=== PATIENT | female | born 1975 | race Caucasian/White ===

== ENCOUNTER 2016-09-27 19:43 | Emergency (ER) | payer MEDICARE, OTHER ==
[~2016-09-27 19:43] MED LIST: CITA20TA4 PO; CYCL-36 PO; OXYC1SOL5 PO; PROM2SUP RECTAL; PROT40TA PO; SUCR1TAB PO; TAB-TAB PO; ZOFR4TAB3 SL
[2016-09-27 20:50] VITALS: BP 130/72; PULSE 62; RESP 18; TEMP 97.6; O2SAT 99
[2016-09-27] MEDS ORDERED: LORazepam 2 MG/ML VIAL IV PUSH PRN (21:15)
--- NOTE | 2016-09-27 21:23 | PD ---
HPI Chief Complaint: Alcohol/Drug Intoxication Time Seen by Provider: 21:15 Travel History International Travel<30 days: No Contact w/Intl Traveler<30days: No Traveled to known affect area: No History of Present Illness HPI This is a 41-year-old female who presents to the emergency department brought in under Ortiz's act for being intoxicated in public at [employer] . She evidently vomited in the restaurant. She was very agitated upon arrival. She was there with a boyfriend and she is very upset because the boyfriend was discharged from the hospital but she wasn't. She doesn't provide much linear history. PFSH Past Medical History Autoimmune Disease: Yes Blood Disorders: No Anxiety: Yes Depression: Yes Cancer: No Cardiovascular Problems: No Chemotherapy: No Diabetes: No Diminished Hearing: No Endocrine: No Gastrointestinal Disorders: Yes (esophageal strictures) Gout: Yes Genitourinary: No Hepatitis: No Hiatal Hernia: No Hypertension: Yes Medical other: Yes (right lower leg ulcer) Musculoskeletal: Yes (hx of fusion) Neurologic: No Psychiatric: Yes (years ago pt stated she was dx with depression and anxiety) Reproductive: No Respiratory: No Integumentary: Yes (CELLULITIS TO RIGHT LOWER LEG 2007) Radiation Therapy: No Thyroid Disease: No ?: Not : 0 Past Surgical History Surgical History: No Previous Surgery Abdominal Surgery: Yes (gastric bypass) AICD: No Gynecologic Surgery: Yes (endometerial ablation) Joint Replacement: No Pacemaker: No Other Surgery: Yes Social History Alcohol Use: Yes (OCC) Tobacco Use: Yes (1 PACK DAILY X 20 YEARS) Substance Use: No Allergies-Medications (Allergen,Severity, Reaction): Coded Allergies: Aspirin (Verified Allergy, Severe, Anaphylaxis, 07/18/16) Morphine (Verified Allergy, Severe, Hallucinations, 07/18/16) Wasp (Verified Allergy, Unknown, 07/18/16) swelling and shortness of breath Reported Meds & Prescriptions Reported Meds & Active Scripts Active Protonix (Pantoprazole Sodium) 40 Mg Tab 40 Mg PO BID 14 Days Phenergan 12.5 mg supp (Promethazine HCl) 12.5 Mg Sup 12.5 Mg RECTAL Q6HR PRN Zofran ODT (Ondansetron HCl) 4 Mg Tab 4 Mg SL Q6H PRN FOR NAUSEA/VOMITING Carafate 1 Gm Tab (Sucralfate) 1 Gm Tab 1 Gm PO TIDACHS 20 Days Take with water on an empty stomach. To reduce the potential of adversely affecting the absorption of other drugs, take other drugs 2 hours prior to Sucralfate. Reported Flexeril (Cyclobenzaprine HCl) 10 Mg Tab 10 Mg PO TID Citalopram Hydrobromide 20 Mg Tab 20 Mg PO DAILY Oxycodone/Acetaminophen 10 mg/325 mg 10 mg/325 mg Tab 2 Tab PO Q4H PRN Multivitamin (Multivitamins) 1 Tab Tab 1 Tab PO DAILY Review of Systems ROS Limitations: Intoxication Physical Exam Narrative GENERAL: Agitated SKIN: Focused skin assessment warm and dry. HEAD: Atraumatic. Normocephalic. EYES: Pupils equal and round. No injection or drainage. ENT: Moist mucous membranes NECK: Trachea midline. CARDIOVASCULAR: Regular rate and rhythm. No murmur appreciated. RESPIRATORY: Clear to auscultation. Breath sounds equal bilaterally. GASTROINTESTINAL: Abdomen soft, non-tender, nondistended. MUSCULOSKELETAL: No obvious deformities. NEUROLOGICAL: Awake and alert. No obvious cranial nerve deficits. Moving all extremities. PSYCHIATRIC: Agitated, intermittently cursing and yelling at staff, when I walk in the room she is screaming "I am being raped", poor insight and judgment Data Data Last Documented VS Vital Signs Date Time Temp Pulse Resp B/P Pulse Ox O2 Delivery O2 Flow Rate FiO2 09/27/16 20:50 97.6 62 18 130/72 99 Orders Complete Blood Count With Diff (09/27/16 21:15) Basic Metabolic Panel (Bmp) (09/27/16 21:15) Alcohol (Ethanol) (09/27/16 21:15) Lorazepam Inj (Ativan Inj) (09/27/16 21:15) Restraints Non-Violent EMILIANO.Q3H (09/27/16 21:51) Lorazepam Inj (Ativan Inj) (09/27/16 22:30) Labs Laboratory Tests Test 09/27/16 21:27 White Blood Count 7.0 TH/MM3 Red Blood Count 4.91 MIL/MM3 Hemoglobin 14.6 GM/DL Hematocrit 43.3 % Mean Corpuscular Volume 88.2 FL Mean Corpuscular Hemoglobin 29.7 PG Mean Corpuscular Hemoglobin 33.7 % Concent Red Cell Distribution Width 14.7 % Platelet Count 263 TH/MM3 Mean Platelet Volume 8.4 FL Neutrophils (%) (Auto) 65.0 % Lymphocytes (%) (Auto) 26.9 % Monocytes (%) (Auto) 6.2 % Eosinophils (%) (Auto) 1.0 % Basophils (%) (Auto) 0.9 % Neutrophils # (Auto) 4.6 TH/MM3 Lymphocytes # (Auto) 1.9 TH/MM3 Monocytes # (Auto) 0.4 TH/MM3 Eosinophils # (Auto) 0.1 TH/MM3 Basophils # (Auto) 0.1 TH/MM3 CBC Comment DIFF FINAL Differential Comment Sodium Level 143 MEQ/L Potassium Level 3.5 MEQ/L Chloride Level 111 MEQ/L Carbon Dioxide Level 18.6 MEQ/L Anion Gap 13 MEQ/L Blood Urea Nitrogen 8 MG/DL Creatinine 0.77 MG/DL Estimat Glomerular Filtration 83 ML/MIN Rate Random Glucose 85 MG/DL Calcium Level 8.8 MG/DL Ethyl Alcohol Level 189 MG/DL [facility] Medical Decision Making Medical Screen Exam Complete: Yes Emergency Medical Condition: Yes Interpretation(s) Afebrile, no tachycardia, normotensive Electrolytes are reassuring Alcohol is 189 Differential Diagnosis Acute alcohol intoxication, drug intoxication, psychosis Narrative Course This is a 41-year-old female who presents to the emergency department brought in under a [place] act for acute alcohol intoxication. She was quite belligerent on arrival, cursing at staff and screaming. She lacked insight and judgment. She was given an intramuscular injection of Ativan. Labs were obtained which were reassuring. Patient became increasingly sober throughout her ER stay and ultimately was discharged home once clinically sober. Diagnosis Primary Impression: Acute alcohol intoxication Qualified Code: F10.120 - Acute alcohol intoxication, uncomplicated Patient Instructions: General Instructions Additional Instructions: Follow up with Rhett Erickson in regards to psychiatric or substance related issues at: [address] [place], [place] [address] Med/Other Pt SpecificInfo: No Change to Meds Disposition: 01 DISCHARGE HOME Condition: Stable Ita Acevedo MD Sep 27, 2016 21:23
[2016-09-27 21:53] LABS: AUTOMATED NEUTROPHIL # 4.6 TH/MM3 (1.8-7.7); BASOPHIL # 0.1 TH/MM3 (0-0.2); BASOPHIL % 0.9 % (0.0-2.0); EOSINOPHIL # 0.1 TH/MM3 (0-0.4); HEMATOCRIT 43.3 % (35.0-46.0); HEMO FLAGS DIFF FINAL; LYMPH % 26.9 % (9.0-44.0); LYMPHOCYTE # 1.9 TH/MM3 (1.0-4.8); MEAN CELL VOLUME 88.2 FL (80.0-100.0); MEAN CORPUSCULAR HEMOGLOBIN 29.7 PG (27.0-34.0); MEAN CORPUSCULAR HGB CONC 33.7 % (32.0-36.0); MONO % 6.2 % (0.0-8.0); PLATELET COUNT 263 TH/MM3 (150-450); RED BLOOD COUNT 4.91 MIL/MM3 (4.00-5.30); RED CELL DISTRIBUTION WIDTH 14.7 % (11.6-17.2)
[2016-09-27 22:07] LABS: BICARBONATE 18.6 MEQ/L (21.0-32.0); POTASSIUM 3.5 MEQ/L (3.5-5.1)
[2016-09-27] MEDS ORDERED: LORazepam 2 MG/ML VIAL IM PRN (22:30)
== END 2016-09-28 00:08 | disposition home or self-care (01) ==
LOC: NEDAMB 19:43 → NEPB 09-28 00:08
DX: F10.120 Alcohol abuse with intoxication, uncomplicated (principal); I10 Essential (primary) hypertension; F17.200 Nicotine dependence, unspecified, uncomplicated; Y90.6 Blood alcohol level of 120-199 mg/100 ml; Z79.899 Other long term (current) drug therapy
CPT/HCPCS: 80048; 80307; 85025; 96372; 99285; J2060

== ENCOUNTER 2017-08-11 08:08 | Emergency (ER) | payer MEDICARE, OTHER ==
[~2017-08-11] VITALS: Ht 167.6 cm; Wt 75.0 kg
[2017-08-11 08:11] VITALS: BP 125/75; PULSE 74; RESP 16; TEMP 97.9; O2SAT 100
--- NOTE | 2017-08-11 08:39 | PD ---
HPI Chief Complaint: Injury Time Seen by Provider: 08:19 Travel History International Travel<30 days: No Contact w/Intl Traveler<30days: No Traveled to known affect area: No History of Present Illness HPI Patient gives a history of accidentally stubbing her left great toe on the sidewalk. This occurred yesterday patient was able to ambulate on it however over time he has gotten worse. Currently rates the pain as sharp 10 out of 10 nonradiating. No alleviating or aggravating factors. No associated factors such as fever, loss of consciousness, any other areas that were affected. Denies any chest pain abdominal pain or back pain. Allergies to aspirin and morphine states that aspirin causes hives and morphine causes her to stop breathing States no past medical history however she does have multiple surgical histories. Including esophageal stenosis which requires dilations regularly. For this reason the patient requested liquid pain medication (stating that she can't swallow her pills) PFSH Past Medical History Autoimmune Disease: Yes Blood Disorders: No Anxiety: Yes Depression: Yes Cancer: No Cardiovascular Problems: No Chemotherapy: No Diabetes: No Diminished Hearing: No Endocrine: No Gastrointestinal Disorders: Yes (esophageal strictures) Gout: Yes Genitourinary: No Hepatitis: No Hiatal Hernia: No Hypertension: No Medical other: Yes (right lower leg ulcer) Musculoskeletal: Yes (hx of fusion) Neurologic: No Psychiatric: Yes (years ago pt stated she was dx with depression and anxiety) Reproductive: No Respiratory: No Integumentary: Yes (CELLULITIS TO RIGHT LOWER LEG 2007) Radiation Therapy: No Thyroid Disease: No ?: Not LMP: 07/24/17 : 0 Past Surgical History Abdominal Surgery: Yes (gastric bypass) AICD: No Gynecologic Surgery: Yes (endometerial ablation) Joint Replacement: No Pacemaker: No Other Surgery: Yes Social History Alcohol Use: Yes (OCC) Tobacco Use: Yes (1 PACK DAILY X 20 YEARS) Substance Use: No Allergies-Medications (Allergen,Severity, Reaction): Coded Allergies: aspirin (Unverified Allergy, Severe, Anaphylaxis, 08/11/17) morphine (Unverified Allergy, Severe, Hallucinations, 08/11/17) hornet venom (Unverified Allergy, Unknown, 08/11/17) swelling and shortness of breath Reported Meds & Prescriptions Reported Meds & Active Scripts Active Oxycodone-Acetaminophen Liq 5-325 Mg/5 Ml Liq 5 Ml PO Q6H PRN Protonix (Pantoprazole Sodium) 40 Mg Tab 40 Mg PO BID 14 Days Phenergan 12.5 mg supp (Promethazine HCl) 12.5 Mg Sup 12.5 Mg RECTAL Q6HR PRN Zofran ODT (Ondansetron HCl) 4 Mg Tab 4 Mg SL Q6H PRN FOR NAUSEA/VOMITING Carafate 1 Gm Tab (Sucralfate) 1 Gm Tab 1 Gm PO TIDACHS 20 Days Take with water on an empty stomach. To reduce the potential of adversely affecting the absorption of other drugs, take other drugs 2 hours prior to Sucralfate. Reported Flexeril (Cyclobenzaprine HCl) 10 Mg Tab 10 Mg PO TID Citalopram Hydrobromide 20 Mg Tab 20 Mg PO DAILY Oxycodone/Acetaminophen 5-325 mg/5Ml (Oxycodone W/ Acetaminophen) 10 mg/325 mg Tab 2 Tab PO Q4H PRN Multivitamin (Multivitamins) 1 Tab Tab 1 Tab PO DAILY Review of Systems Except as stated in HPI: all other systems reviewed are Neg General / Constitutional: No: Fever Eyes: No: Visual changes HENT: No: Headaches Cardiovascular: No: Chest Pain or Discomfort Respiratory: No: Shortness of Breath Gastrointestinal: No: Abdominal Pain Genitourinary: No: Dysuria Musculoskeletal: Positive: Pain (to left great toe) Skin: No Rash Neurologic: No: Weakness Psychiatric: No: Depression Endocrine: No: Polydipsia Hematologic/Lymphatic: No: Easy Bruising Physical Exam Narrative GENERAL: SKIN: Warm and dry. HEAD: Atraumatic. Normocephalic. EYES: Pupils equal and round. No scleral icterus. No injection or drainage. ENT: No nasal bleeding or discharge. Mucous membranes pink and moist. NECK: Trachea midline. No JVD. CARDIOVASCULAR: Regular rate and rhythm. RESPIRATORY: No accessory muscle use. Clear to auscultation. Breath sounds equal bilaterally. GASTROINTESTINAL: Abdomen soft, non-tender, nondistended. MUSCULOSKELETAL: Extremities without clubbing, cyanosis, or edema. No obvious deformities. NEUROLOGICAL: Awake and alert. No obvious cranial nerve deficits. Motor grossly within normal limits. Five out of 5 muscle strength in the arms and legs. Normal speech. PSYCHIATRIC: Appropriate mood and affect; insight and judgment normal. Data Data Last Documented VS Vital Signs Date Time Temp Pulse Resp B/P (MAP) Pulse Ox O2 Delivery O2 Flow Rate FiO2 08/11/17 10:00 76 18 124/72 (89) 98 08/11/17 08:11 97.9 Orders Orders Toe (Min 2vws) (08/11/17 ) Ketorolac Inj (Toradol Inj) (08/11/17 08:45) Support Splint (08/11/17 09:00) Ed Discharge Order (08/11/17 09:48) MDM Medical Decision Making Medical Screen Exam Complete: Yes Emergency Medical Condition: Yes Medical Record Reviewed: Yes Differential Diagnosis fx v dislocation v contusion of toe Narrative Course xray shows distal phalanx fx to first great toe, left..... Diagnosis Primary Impression: Fracture of phalanx of left great toe Qualified Codes: S92.425A - Nondisplaced fracture of distal phalanx of left great toe, initial encounter for closed fracture Patient Instructions: General Instructions, Toe Fracture (ED) Scripts Oxycodone-Acetaminophen Liq (Oxycodone-Acetaminophen Liq) 5-325 Mg/5 Ml Liq 5 ML PO Q6H Y for PAIN, #50 ML 0 Refills Prov: Guillermo Charles MD 08/11/17 Disposition: 01 DISCHARGE HOME Condition: Stable Guillermo Charles MD Aug 11, 2017 08:39
[2017-08-11] MEDS ORDERED: KETOROLAC TROMETHAMINE 60 MG/2 ML (IM) VIAL IM ONE (08:45)
[2017-08-11] MEDS ORDERED: OXYC1SOL5 PO (08:57)
--- NOTE | 2017-08-11 09:05 | RADRPT ---
EXAM DATE/TIME: 08/11/2017 08:36 [facility] COMPARISON: No previous studies available for comparison. INDICATIONS : Left foot, first digit pain. Patient states she jammed it against concrete. MEDICAL HISTORY : None. SURGICAL HISTORY : None. ENCOUNTER: Initial ACUITY: 2 days PAIN SCORE: 8/10 LOCATION: Left foot, first digit. FINDINGS: Examination of the first digit of the left foot demonstrates a a nondisplaced fracture of the metaphy sis of the distal phalanx of the 1st digit which, on the lateral view, is dorsal in position. No int ra-articular extension. Mild soft tissue swelling about the distal 1st digit.. CONCLUSION: Nondisplaced fracture of the distal phalanx of the 1st digit. Juan Ellis MD on August 11, 2017 at 9:02 Board Certified Radiologist. This report was verified electronically.
[2017-08-11 09:55] VITALS: RESP 18
[2017-08-11 10:00] VITALS: BP 124/72
== END 2017-08-11 10:00 | disposition home or self-care (01) ==
LOC: NEPE 08:08
DX: S92.425A Nondisplaced fracture of distal phalanx of left great toe, initial encounter for closed fracture (principal); W22.8XXA Striking against or struck by other objects, initial encounter; Y92.480 Sidewalk as the place of occurrence of the external cause
CPT/HCPCS: 73660; 96372; 99283; J1885

== ENCOUNTER 2017-10-20 12:08 | Emergency (ER) | payer MEDICARE, OTHER ==
[~2017-10-20] VITALS: Ht 160 cm; Wt 79.0 kg
[2017-10-20 12:28] VITALS: BP 85/52; PULSE 90; RESP 18; TEMP 98.5; O2SAT 100
[2017-10-20] MEDS ORDERED: PROT40TA PO (12:46)
[2017-10-20] MEDS ORDERED: ZOFR4TAB PO (12:46)
[2017-10-20] MEDS ORDERED: CYCL10TA PO (12:46)
[2017-10-20] MEDS ORDERED: CITA20TA4 PO (12:46)
[2017-10-20] MEDS ORDERED: CARA1TAB6 PO (12:46)
[2017-10-20] MEDS ORDERED: SODIUM CHLOR 0.9% 1000 ML INJ 1,000 ML IV SCH (12:48)
[2017-10-20] MEDS ORDERED: SODIUM CHLORIDE 0.9% FLUSH 10 ML FLUSH IV FLUSH PRN (13:00)
[2017-10-20] MEDS ORDERED: ONDANSETRON HCL 4 MG/2 ML VIAL IVP ONE (13:00)
[2017-10-20 13:18] VITALS: BP 138/78; PULSE 60; RESP 18; O2SAT 100
[2017-10-20 13:38] LABS: AUTOMATED NEUTROPHIL # 7.3 TH/MM3 (1.8-7.7); BASOPHIL % 0.3 % (0.0-2.0); EOSINOPHIL % 0.2 % (0.0-4.0); HEMOGLOBIN 14.4 GM/DL (11.6-15.3); LYMPHOCYTE # 0.8 TH/MM3 (1.0-4.8); MEAN CORPUSCULAR HEMOGLOBIN 29.1 PG (27.0-34.0); MEAN CORPUSCULAR HGB CONC 33.5 % (32.0-36.0); MEAN PLATELET VOLUME 7.9 FL (7.0-11.0); MONO % 7.1 % (0.0-8.0); MONOCYTE # 0.6 TH/MM3 (0-0.9); NEUT % 83.4 % (16.0-70.0); PLATELET COUNT 227 TH/MM3 (150-450); RED BLOOD COUNT 4.95 MIL/MM3 (4.00-5.30); RED CELL DISTRIBUTION WIDTH 15.1 % (11.6-17.2); WHITE BLOOD COUNT 8.7 TH/MM3 (4.0-11.0)
[2017-10-20 13:46] LABS: ALBUMIN 3.8 GM/DL (3.4-5.0); ALT (GPT) 44 U/L (10-53); AST (GOT) 24 U/L (15-37); BICARBONATE 28.5 MEQ/L (21.0-32.0); BLOOD UREA NITROGEN 9 MG/DL (7-18); CALCIUM 8.8 MG/DL (8.5-10.1); CHLORIDE 102 MEQ/L (98-107); CREATININE 0.67 MG/DL (0.50-1.00); GLOMERULAR FILTRATION RATE 97 ML/MIN (>89); GLUCOSE,RANDOM 99 MG/DL (74-106); SODIUM (NA) 138 MEQ/L (136-145)
[2017-10-20 13:48] LABS: ALKALINE PHOSPHATASE 71 U/L (45-117); TOTAL BILIRUBIN ADULT 0.6 MG/DL (0.2-1.0); TOTAL PROTEIN 7.8 GM/DL (6.4-8.2)
--- NOTE | 2017-10-20 13:49 | PD ---
HPI . Abdominal pain Chief Complaint: Abdominal Pain Time Seen by Provider: 12:38 Travel History International Travel<30 days: No Contact w/Intl Traveler<30days: No Traveled to known affect area: No History of Present Illness HPI This patient presents with a chief complaint of abdominal pain. Onset was 2 days ago. It is associated with nausea and vomiting. She reports normal urinary output. She has had subjective fevers and chills. No known modifying factors. Severity is 10/10. This patient underwent gastric bypass surgery in 2009. She reports a history of peptic ulcer disease. Records indicate a history of alcohol abuse. PFSH Past Medical History Autoimmune Disease: Yes Blood Disorders: No Anxiety: Yes Depression: Yes Cancer: No Cardiovascular Problems: No Chemotherapy: No Diabetes: No Diminished Hearing: No Endocrine: No Gastrointestinal Disorders: Yes (esophageal strictures) Gout: Yes Genitourinary: No Hepatitis: No Hiatal Hernia: No Hypertension: No Immune Disorder: Yes (pt has a hx of low iron) Medical other: Yes (right lower leg ulcer- healed ) Musculoskeletal: Yes (hx of lower back fusion) Neurologic: No Psychiatric: Yes (years ago pt stated she was dx with depression and anxiety) Reproductive: No Respiratory: No Integumentary: Yes (CELLULITIS TO RIGHT LOWER LEG 2007-hela ) Immunizations Current: Yes Radiation Therapy: No Thyroid Disease: No Tetanus Vaccination: > 5 Years Influenza Vaccination: No ?: Not LMP: End of August : 0 Past Surgical History Abdominal Surgery: Yes (gastric bypass 2009) AICD: No Gynecologic Surgery: Yes (endometrial ablation) Joint Replacement: No Pacemaker: No Other Surgery: Yes Social History Alcohol Use: Yes ([facility]) Tobacco Use: Yes (1 PACK DAILY X 20 YEARS) Substance Use: No Allergies-Medications (Allergen,Severity, Reaction): Coded Allergies: aspirin (Unverified Allergy, Severe, Anaphylaxis, 10/20/17) morphine (Unverified Allergy, Severe, Hallucinations, 10/20/17) hornet venom (Unverified Allergy, Unknown, 10/20/17) swelling and shortness of breath Reported Meds & Prescriptions Reported Meds & Active Scripts Active Keflex (Cephalexin) 500 Mg Capsule 500 Mg PO TID 7 Days Reported Zofran (Ondansetron HCl) 4 Mg Tab 4 Mg PO Q6HR PRN Flexeril (Cyclobenzaprine HCl) 10 Mg Tab 10 Mg PO TID Citalopram (Citalopram Hydrobromide) 20 Mg Tab 20 Mg PO DAILY Carafate (Sucralfate) 1 Gram Tab 1 Gm PO TID AND HS On empty stomach Protonix (Pantoprazole Sodium) 40 Mg Tab 40 Mg PO BID Review of Systems Except as stated in HPI: all other systems reviewed are Neg Gastrointestinal: Positive: Nausea, Vomiting, Abdominal Pain Physical Exam Narrative GENERAL: Patient is lying on her right side in the position with her head hanging off the bed. SKIN: warm/dry. Normal color and turgor. HEAD: Normocephalic. Atraumatic. EYES: Pupils equal and round. No scleral icterus. No injection or drainage. ENT: No nasal bleeding or discharge. Mucous membranes pink and moist. NECK: Trachea midline. Full range of motion without pain.. CARDIOVASCULAR: Regular rate and rhythm. Heart sounds are normal. RESPIRATORY: No accessory muscle use. Clear to auscultation. Breath sounds equal bilaterally. GASTROINTESTINAL: Abdomen soft. Diffuse tenderness but no guarding or rebound. Bowel sounds present. Nondistended. MUSCULOSKELETAL: No obvious deformities. NEUROLOGICAL: Awake and alert. No obvious cranial nerve deficits. Motor grossly within normal limits. Normal speech. PSYCHIATRIC: Appropriate mood and affect; insight and judgment normal. Data Data Last Documented VS Vital Signs Date Time Temp Pulse Resp B/P (MAP) Pulse Ox O2 Delivery O2 Flow Rate FiO2 10/20/17 16:25 52 16 162/84 (110) 98 10/20/17 13:18 Room Air 10/20/17 12:28 98.5 Orders Orders Complete Blood Count With Diff (10/20/17 12:48) Comprehensive Metabolic Panel (10/20/17 12:48) Lipase (10/20/17 12:48) Urinalysis - C+S If Indicated (10/20/17 12:48) Ct Abd/Pel W Iv Contrast(Rout) (10/20/17 12:48) Iv Access Insert/Monitor (10/20/17 12:48) Ecg Monitoring (10/20/17 12:48) Oximetry (10/20/17 12:48) NPO (10/20/17 12:48) Ondansetron Inj (Zofran Inj) (10/20/17 13:00) Sodium Chlor 0.9% 1000 Ml Inj (Ns 1000 M (10/20/17 12:48) Sodium Chloride 0.9% Flush (Ns Flush) (10/20/17 13:00) Ed Urine Pregnancytest Poc (10/20/17 12:48) Alcohol (Ethanol) (10/20/17 12:48) Drug Screen, Random Urine (10/20/17 12:48) Iohexol 350 Inj (Omnipaque 350 Inj) (10/20/17 15:26) Urine Culture (10/20/17 15:05) Ceftriaxone Inj (Rocephin Inj) (10/20/17 16:30) Chest, Pa & Lat (10/20/17 16:48) Oxycodone (Roxicodone) (10/20/17 17:00) Us Pelvis Comp W Transvaginal (10/20/17 16:48) Labs Laboratory Tests Test 10/20/17 13:10 10/20/17 15:05 White Blood Count 8.7 TH/MM3 Red Blood Count 4.95 MIL/MM3 Hemoglobin 14.4 GM/DL Hematocrit 43.0 % Mean Corpuscular Volume 87.0 FL Mean Corpuscular Hemoglobin 29.1 PG Mean Corpuscular Hemoglobin Concent 33.5 % Red Cell Distribution Width 15.1 % Platelet Count 227 TH/MM3 Mean Platelet Volume 7.9 FL Neutrophils (%) (Auto) 83.4 % Lymphocytes (%) (Auto) 9.0 % Monocytes (%) (Auto) 7.1 % Eosinophils (%) (Auto) 0.2 % Basophils (%) (Auto) 0.3 % Neutrophils # (Auto) 7.3 TH/MM3 Lymphocytes # (Auto) 0.8 TH/MM3 Monocytes # (Auto) 0.6 TH/MM3 Eosinophils # (Auto) 0.0 TH/MM3 Basophils # (Auto) 0.0 TH/MM3 CBC Comment DIFF FINAL Differential Comment Blood Urea Nitrogen 9 MG/DL Creatinine 0.67 MG/DL Random Glucose 99 MG/DL Total Protein 7.8 GM/DL Albumin 3.8 GM/DL Calcium Level 8.8 MG/DL Alkaline Phosphatase 71 U/L Aspartate Amino Transf (AST/SGOT) 24 U/L Alanine Aminotransferase (ALT/SGPT) 44 U/L Total Bilirubin 0.6 MG/DL Sodium Level 138 MEQ/L Potassium Level 3.7 MEQ/L Chloride Level 102 MEQ/L Carbon Dioxide Level 28.5 MEQ/L Anion Gap 8 MEQ/L Estimat Glomerular Filtration Rate 97 ML/MIN Lipase 118 U/L Ethyl Alcohol Level LESS THAN 3 MG/DL Urine Color YELLOW Urine Turbidity HAZY Urine pH 7.0 Urine Specific [place] 1.017 Urine Protein NEG mg/dL Urine Glucose (UA) NEG mg/dL Urine Ketones 10 mg/dL Urine Occult Blood NEG Urine Nitrite NEG Urine Bilirubin NEG Urine Urobilinogen 4.0 MG/DL Urine Leukocyte Esterase SMALL Urine RBC 4 /hpf Urine WBC 28 /hpf Urine WBC Clumps RARE Urine Squamous Epithelial Cells 10 /hpf Urine Bacteria MOD /hpf Urine Hyaline Casts 2 /lpf Urine Mucus FEW /lpf Microscopic Urinalysis Comment CULTURE INDICATED Urine Opiates Screen NEG Urine Barbiturates Screen NEG Urine Amphetamines Screen NEG Urine Benzodiazepines Screen NEG Urine Cocaine Screen NEG Urine Cannabinoids Screen POS MDM Medical Decision Making Medical Screen Exam Complete: Yes Emergency Medical Condition: Yes Medical Record Reviewed: Yes (please see HPI for pertinent review of records) Differential Diagnosis Differential diagnosis of abdominal pain includes but is not limited to gastritis, pancreatitis, hepatitis, gastroenteritis, constipation, urinary retention, peptic ulcer disease, diverticulitis or appendicitis Narrative Course This patient presents complaining with abdominal pain associated with nausea and vomiting. An IV has been started and she has been given IV morphine and Zofran. Routine abdominal pain labs are pending as is a CT of her abdomen and pelvis. I have also ordered an alcohol level and a drug screen. This patient is just not acting normally. CBC & BMP Diagram 10/20/17 13:10 Total Protein 7.8, Albumin 3.8, Calcium Level 8.8, Alkaline Phosphatase 71, Aspartate Amino Transf (AST/SGOT) 24, Alanine Aminotransferase (ALT/SGPT) 44, Total Bilirubin 0.6 UA>>small LE, 4 RBCs, 28 WBCs, rare WBC clumps, mod bact Alcohol level is negative. Drug screen is positive for cannabinoids. This patient keeps asking for pain medication. She cannot take nonsteroidal anti-inflammatory agents because of her previous gastric bypass. She lists an allergy to morphine. She states that she takes oxycodone every 4 hours for several chronic painful conditions. Interestingly enough, she does not show up in [facility]. Nonetheless, I have ordered her a single dose of her usual oxycodone. Last Impressions Abdomen/Pelvis CT 10/20/17 1248 Signed Impressions: Service Date/Time: Friday, October 20, 2017 15:13 - CONCLUSION: 1. No definite acute abnormality seen. 2. 4.8 cm left adnexal mass. A left ovarian process needs to be suspected. This could be further evaluated with a pelvic ultrasound examination. 3. Status post gastric bypass procedure. 4. Hepatic steatosis. 5. Patchy suspected minimal consolidation seen at the right lung base just above the central aspect of the right hemidiaphragm. There is also some minimal suspected atelectasis of the posterior right lower lobe. Kyle Ledezma MD I have ordered a chest x-ray and the recommended pelvic ultrasound CXR: No acute disease. The minimal consolidation seen on CT examination cannot clearly be seen on this plain film examination. US: 1. The left ovary is enlarged. There is a 3.0 cm simple cyst associated with the left ovary. Typically, these are followed. 2. Mild free fluid in the cul-de-sac. 3. Suspected nabothian cysts at the cervix. This patient will finally be discharged to home with a prescription for Keflex for her urinary tract infection and with instructions to follow-up with her mortgage loan processor for the ovarian cyst. Diagnosis Primary Impression: Abdominal pain Qualified Codes: R10.84 - Generalized abdominal pain Additional Impressions: Urinary tract infection Qualified Codes: N39.0 - Urinary tract infection, site not specified Left ovarian cyst Patient Instructions: General Instructions, Urinary Tract Infection in Women ( [place]) Additional Instructions: Follow-up with your mortgage loan processor after your next menstrual period for repeat evaluation of the cyst. These typically resolve spontaneously. Med/Other Pt SpecificInfo: Prescription(s) given Scripts Cephalexin (Keflex) 500 Mg Capsule 500 MG PO TID for Infection for 7 Days, CAP 0 Refills Prov: Fabiola Taylor MD 10/20/17 Disposition: 01 DISCHARGE HOME Condition: Stable Fabiola Taylor MD Oct 20, 2017 13:49
[2017-10-20] MEDS ORDERED: IOHEXOL 350 MG/ML 10 ML VIAL (for RAD DIAG) IVCONTRAST ONE (15:26)
[2017-10-20 16:17] LABS: BACTERIA, URINE MOD /hpf; BILIRUBIN, URINE NEG (NEG); BLOOD, URINE NEG (NEG); GLUCOSE,URINE NEG (NEG); HYALINE CAST, URINE 2 /lpf (RARE); KETONE, URINE 10 mg/dL (NEG); MUCUS URINE FEW /lpf (OCC); NITRITE,URINE NEG (NEG); SQUAMOUS EPITHELIAL CELL URINE 10 /hpf (0-5); URINE COLOR YELLOW (YELLW/STRAW); URINE LEUKOCYTE ESTERASE SMALL (NEG); WHITE BLOOD CELL CLUMPS RARE
[2017-10-20 16:25] VITALS: BP 162/84; PULSE 52; RESP 16; O2SAT 98
--- NOTE | 2017-10-20 16:29 | RADRPT ---
EXAM DATE/TIME: 10/20/2017 15:13 [facility] COMPARISON: CT ABDOMEN & PELVIS W/O CONTRAST, February 23, 2016, 11:11. INDICATIONS : Generalized abdominal pain. IV CONTRAST: 97 cc Omnipaque 350 (iohexol) IV ORAL CONTRAST: No oral contrast ingested. RADIATION DOSE: 6.77 CTDIvol (mGy) MEDICAL HISTORY : None SURGICAL HISTORY : Gastric bypass. Endomterial ablation. ENCOUNTER: Initial ACUITY: 1 day PAIN SCALE: 4/10 LOCATION: abdomen TECHNIQUE: Volumetric scanning of the abdomen and pelvis was performed. Using automated exposure control and ad justment of the mA and/or kV according to patient size, radiation dose was kept as low as reasonably achievable to obtain optimal diagnostic quality images. DICOM format image data is available electro nically for review and comparison. FINDINGS: LOWER LUNGS: There is minimal subpleural density seen at the right base just above the central aspect of the right hemidiaphragm. There is also some minimal linear density seen at the posterior right base. LIVER: There is decreased density seen throughout the liver. No focal hepatic lesions are seen. SPLEEN: The spleen is borderline enlarged measuring 13 cm in length. PANCREAS: Within normal limits. KIDNEYS: Normal in size and shape. There is no mass, stone or hydronephrosis. ADRENAL GLANDS: Within normal limits. VASCULAR: There is no aortic aneurysm. BOWEL/MESENTERY: The patient is status post gastric bypass surgery. There is an excluded portion of the stomach is see n laterally. There is some fluid in the fundus region at the excluded portion of the stomach. The pat ient is status post Thomas-en-Y anastomosis. Significantly dilated bowel is not seen. ABDOMINAL WALL: Within normal limits. RETROPERITONEUM: There is no lymphadenopathy. BLADDER: No wall thickening or mass. REPRODUCTIVE: There is a 4.8 x 4.0 x 3.5 cm left adnexal mass. The right ovary appears normal in size. The uterus i s unremarkable. INGUINAL: There is no lymphadenopathy or hernia. MUSCULOSKELETAL: 2 surgical stabilization devices are seen traversing the right sacroiliac joint. There is degenerativ e change in the lumbar spine. There appears to be spondylolisthesis at the L5-S1 level. CONCLUSION: 1. No definite acute abnormality seen. 2. 4.8 cm left adnexal mass. A left ovarian process needs to be suspected. This could be further eval uated with a pelvic ultrasound examination. 3. Status post gastric bypass procedure. 4. Hepatic steatosis. 5. Patchy suspected minimal consolidation seen at the right lung base just above the central aspect o f the right hemidiaphragm. There is also some minimal suspected atelectasis of the posterior right lo wer lobe. Kyle Ledezma MD on October 20, 2017 at 16:13 Board Certified Radiologist. This report was verified electronically.
[2017-10-20] MEDS ORDERED: cefTRIAXone INJ 1,000 MG in SODIUM CHLORIDE 0.9% INJ 100 ML IV ONE (16:30)
--- NOTE | 2017-10-20 17:26 | RADRPT ---
EXAM DATE/TIME: 10/20/2017 17:02 [facility] COMPARISON: CT ABDOMEN & PELVIS W CONTRAST, October 20, 2017, 15:13. INDICATIONS : Chest pain. MEDICAL HISTORY : None. SURGICAL HISTORY : None. ENCOUNTER: Initial ACUITY: 1 day PAIN SCORE: 6/10 LOCATION: Bilateral chest FINDINGS: PA and lateral views of the chest demonstrate the lungs to be symmetrically aerated without evidence of mass, infiltrate or effusion. The cardiomediastinal contours are unremarkable. Osseous structure s are intact. Old left rib fractures are seen. CONCLUSION: No acute disease. The minimal consolidation seen on CT examination cannot clearly be seen on this pl ain film examination. Kyle Ledezma MD on October 20, 2017 at 17:22 Board Certified Radiologist. This report was verified electronically.
[2017-10-20] MEDS ORDERED: CEPH-460 PO (17:30)
--- NOTE | 2017-10-20 18:28 | RADRPT ---
EXAM DATE/TIME: 10/20/2017 17:23 [facility] COMPARISON: CT ABDOMEN & PELVIS W CONTRAST, October 20, 2017, 15:13. INDICATIONS : Ovarian mass. MEDICAL HISTORY : Anemia. Depression. Anxiety. SURGICAL HISTORY : Endometrial ablation. Gastric bypass. Right third finger. ENCOUNTER: Initial ACUITY: 1 day PAIN SCORE: 0/10 LOCATION: Bilateral pelvis MEASUREMENTS: UTERUS: 6.8 x 4.7 x 3.9 cm ENDOMETRIAL STRIPE: 4 mm RIGHT OVARY: 3.1 x 3.8 x 1.5 cm LEFT OVARY: 4.3 x 4.3 x 2.3 cm FINDINGS: UTERUS: The myometrium has homogeneous echotexture without solid mass. There are subcentimeter cysts at the l ower uterine segment likely related to nabothian cysts. RIGHT OVARY: Ovary contains no mass or significant cystic lesion. Normal follicles are seen. LEFT OVARY: The left ovary is enlarged. There is a 3.0 x 1.8 x 2.6 cm simple cyst associated with the left ovary. There are several other smaller cysts seen at the left ovary. MISCELLANEOUS: There is mild free fluid. CONCLUSION: 1. The left ovary is enlarged. There is a 3.0 cm simple cyst associated with the left ovary. Typicall y, these are followed. 2. Mild free fluid in the cul-de-sac. 3. Suspected nabothian cysts at the cervix. Kyle Ledezma MD on October 20, 2017 at 18:17 Board Certified Radiologist. This report was verified electronically.
[2017-10-20 19:18] VITALS: BP 120/82
== END 2017-10-20 19:20 | disposition home or self-care (01) ==
LOC: NEPE 12:08
DX: R10.84 Generalized abdominal pain (principal); N39.0 Urinary tract infection, site not specified; N83.202 Unspecified ovarian cyst, left side; K76.0 Fatty (change of) liver, not elsewhere classified; F12.10 Cannabis abuse, uncomplicated; M10.9 Gout, unspecified; Z87.11 Personal history of peptic ulcer disease; Z98.84 Bariatric surgery status; Z79.899 Other long term (current) drug therapy
CPT/HCPCS: 71046; 74177; 76830; 76856; 80053; 80307; 81001; 83690; 84703; 85025; 87086; 96361; 96365; 96375; 99285; J0696; J2405; J7030; Q9967